=== PATIENT | female | born 1985 | race Caucasian/White ===

== ENCOUNTER → 2017-08-07 | Outpatient (CLI) | payer OTHER | END | disposition home or self-care (01) | LOC: SHCH 11:28 | PROVIDERS: ATTEND Internal Medicine Cardiovascular Disease | DX: R07.9 Chest pain, unspecified (principal) | CPT/HCPCS: 93306 ==

== ENCOUNTER → 2024-12-07 | Outpatient (CLI) | payer OTHER | END | disposition home or self-care (01) | LOC: RAH 12:54 | PROVIDERS: ATTEND Internal Medicine | DX: Z12.31 Encounter for screening mammogram for malignant neoplasm of breast (principal) | CPT/HCPCS: 77067 ==

== ENCOUNTER → 2025-01-11 | Outpatient (CLI) | payer OTHER ==
--- NOTE | 2025-01-17 08:16 | HMCIMG ---
BILATERAL BREAST ULTRASOUND: Clinical history: Dense breasts with baseline bilateral breast sonogram. Finding: Real-time examination of the both breasts demonstrates heterogeneous echotexture throughout both the breasts. Left breast is a well-defined nodules seen at 1:00 measuring 1.2 x 0.8 x 1.1 cm. The remaining both breasts has no masses is seen. There is a benign-appearing left axillary lymph node measuring 1.2 x 0.6 x 0.7 cm. IMPRESSION: Dense breasts with left breast lesion at 1:00. Which is amenable for ultrasound-guided biopsy. CATEGORY 4: SUSPICIOUS ABNORMALITY. BIOPSY SHOULD BE CONSIDERED Recommend monthly self breast exam as well as annual clinical examination. A negative x-ray should not delay biopsy if a dominant or clinically suspicious mass is present, since 8-10% of cancers are not identified by mammography. Dense breasts particularly, may obscure an underlying neoplasm. Some of these may be detected clinically and therefore, clinical examination is an essential part of breast evaluation.
== END | disposition home or self-care (01) ==
LOC: RAH 13:18
PROVIDERS: ATTEND Internal Medicine
DX: N63.21 Unspecified lump in the left breast, upper outer quadrant (principal); R92.333 Mammographic heterogeneous density, bilateral breasts

== ENCOUNTER → 2025-02-20 | Outpatient (CLI) | payer OTHER ==
--- NOTE | 2025-02-20 11:20 | NUR ---
ULTRASOUND GUIDED LEFT BREAST NODULE BX PROCEDURE PERFORMED BY DR. ALECIA CARRILLO. PUNCTURE SITE LEFT UPPER BREAST AND PATIENT TOLERATED PROCEDURE WELL. SPECIMEN X3 COLLECTED AND SENT TO LAB. TISSUE MARKER PLACED BY DR. CARRILLO. END OF PROCEDURE AT 1055. BIOPSY NEEDLE REMOVED AND BAND-AID APPLIED- NO BLEEDING NOTED. DISCHARGE INSTRUCTIONS GIVEN TO PATIENT AND VERBALIZED UNDERSTANDING. PATIENT IS AMBULATORY AND IN STABLE CONDITION WITH NO C/O PAIN. MAMMOGRAPHY TO LEFT BREAST TO FOLLOW FOR CONFIRMATION OF TISSUE MARKER PLACEMENT.
--- NOTE | 2025-02-21 09:48 | HMCIMG ---
PERCUTANEOUS ULTRASOUND-GUIDED BIOPSY OF left breast at 1:00 with placement of a biopsy marker BREAST MASS: CLINICAL HISTORY: This is a 39 [id number] female with left breast lesion at 1:00 measuring 1.0 x 0.6 x 0.9 cm for ultrasound-guided biopsy. The risk and benefit was explained to the patient. The risks include bleeding and infection. The patient consented to the procedure. Procedure: Under ultrasound guidance left breast lesion at 1:00 was localized. After sterile prep and drape, 1% Xylocaine was used for local anesthetic. Using a 18-gauge Bard gun a total of 3 core biopsy was obtained. Postbiopsy a biopsy marker was placed. The specimen was sent for histology and cell block. Patient tolerated procedure well. IMPRESSION: Past report is pending 1. PERCUTANEOUS ULTRASOUND-GUIDED BIOPSY OF left breast at 1:00 WITH SPECIMENS SENT FOR HISTOLOGY AND CELL BLOCK. THE PATIENT TOLERATED PROCEDURE WELL. PATHOLOGY REPORT IS PENDING. 2. PATIENT IS TO HAVE A POST BIOPSY MARKER PLACEMENT UNILATERAL left BREAST MAMMOGRAM.
--- NOTE | 2025-02-21 09:50 | HMCIMG ---
DIGITAL left breast DIAGNOSTIC MAMMOGRAM postbiopsy Technique: The digital mammographic examination of left breast in craniocaudal, mediolateral oblique views along with CAD was obtained. History: This is a 39 years year-old female who underwent ultrasound-guided left breast biopsy at 1:00 with placement of biopsy marker Reference:Prior mammogram from 12/07/2024 is available.. Breast composition: Breast composition C: The breasts are heterogeneously dense, which may obscure small masses. Finding: The digital mammographic examination of left breast in craniocaudal and mediolateral oblique view along with CAD demonstrates a biopsy marker at 1:00 in satisfactory position.. The study is otherwise unchanged from prior study.. IMPRESSION: Left breast biopsy marker in satisfactory position at 1:00.. FINAL ASSESSMENT: Post-procedure Mammogram for Marker Placement. NOTE: IF A WORK-UP OF THIS PATIENT LEADS TO A BIOPSY, PLEASE FORWARD A COPY OF THE PATHOLOGY REPORT TO OUR OFFICE REQUIRED BY [employer] MARCH 08, 1994. A NEGATIVE MAMMOGRAM SHOULD NOT PRECLUDE BIOPSY OF A CLINICALLY PALPABLE SUSPICIOUS MASS, 10% OF BREAST CANCERS ARE MAMMOGRAPHICALLY OCCULT. THIS MAMMOGRAPHY FACILITY IS FULLY ACCREDITED BY THE [employer]OD AND [employer]UG [employer]ATION (FDA). THANK YOU FOR THIS REFERRAL.
== END | disposition home or self-care (01) ==
LOC: RAH 09:22
PROVIDERS: ATTEND Internal Medicine
DX: D24.2 Benign neoplasm of left breast (principal)
CPT/HCPCS: 19083; 77065; 88305; A4215 ×2